=== PATIENT | female | born 1955 | race Asian ===

== ENCOUNTER 2020-04-19 17:36 | Emergency (ER) | payer OTHER ==
[~2020-04-19] VITALS: Ht 157.5 cm; Wt 81.6 kg
[~2020-04-19 17:36] MED LIST: ACET5TAB36 PO; ALPR0.5T24 PO; DICL1GEL2 TOP; GLIP10TA66 PO; LISI5TAB10 PO; NAPROSYN500 MG PO; NYST100010 EX; PEPCID40 MG OR; PEPCID40 MG PO; TRIA0.1O13 TOP; [UNRECOGNIZED DRUG - OTHER] XX
[2020-04-19 18:13] LABS: PLATELET COUNT 232 K/uL (152-353)
[2020-04-19 18:23] LABS: POTASSIUM 3.4 mmol/L (3.6-5.2); SODIUM 129 mmol/L (136-145)
[2020-04-19 18:28] LABS: PARTIAL THROMBOPLASTIN TIME 27.4 SECONDS (24.5-33.6)
[2020-04-19 19:34] VITALS: BP 168/86; TEMP 98.9
== END 2020-04-19 19:35 | disposition home or self-care (01) ==
LOC: ED 17:36
PROVIDERS: Hospitalist
DX: I16.0 Hypertensive urgency (principal)
CPT/HCPCS: 80053; 82550; 83880; 84484; 85027; 85610; 85730; 93005; 96360; 96375; 99284

== ENCOUNTER 2020-04-23 13:16 | Outpatient (CLI) | payer OTHER ==
[2020-04-23 13:59] LABS: POTASSIUM 4.4 mmol/L (3.6-5.2)
== END 2020-04-23 22:33 | disposition home or self-care (01) ==
LOC: LABW 13:16
PROVIDERS: Family Medicine
DX: E11.9 Type 2 diabetes mellitus without complications (principal); I10 Essential (primary) hypertension; I63.9 Cerebral infarction, unspecified; H93.13 Tinnitus, bilateral
CPT/HCPCS: 36415; 80053; 80061; 83036; 84439; 84443

== ENCOUNTER 2020-04-25 00:22 | Emergency (ER) | payer OTHER ==
[~2020-04-25] VITALS: Ht 157.5 cm; Wt 79.1 kg
[2020-04-25 01:36] LABS: PLATELET COUNT 192 K/uL (152-353)
[2020-04-25 01:46] LABS: POTASSIUM 3.7 mmol/L (3.6-5.2)
[2020-04-25 03:07] VITALS: BP 157/76; TEMP 97.7
== END 2020-04-25 03:08 | disposition home or self-care (01) ==
LOC: ED 00:22
PROVIDERS: Family Medicine
DX: I10 Essential (primary) hypertension (principal); H93.13 Tinnitus, bilateral; E87.1 Hypo-osmolality and hyponatremia
CPT/HCPCS: 36415; 80053; 81000; 83880; 85027; 99284

== ENCOUNTER 2022-04-18 14:07 | Outpatient (CLI) | payer OTHER | END 2022-04-18 20:34 | disposition home or self-care (01) | LOC: MAMMO 14:07 | PROVIDERS: ATTEND Nurse Practitioner Family | DX: Z12.31 Encounter for screening mammogram for malignant neoplasm of breast (principal) ==

== ENCOUNTER 2022-07-14 14:02 | Outpatient (CLI) | payer OTHER | END 2022-07-14 21:39 | disposition home or self-care (01) | LOC: MAMMO 14:02 | PROVIDERS: ATTEND Nurse Practitioner Family | DX: R92.8 Other abnormal and inconclusive findings on diagnostic imaging of breast (principal) ==